=== PATIENT | female | born 1985 ===

== ENCOUNTER 2017-05-12 04:42 | Observation (INO) | payer MEDICARE, MEDICAID ==
[2017-05-12 05:07] VITALS: BMI 42.0
--- NOTE | 2017-05-12 05:31 | ED PDOC ---
HPI: Psych/Substance Abuse Time Seen by Provider: 05/12/17 05:07 Chief Complaint (Nursing): Psychiatric Evaluation History Per: Patient Additional Complaint(s): Pt. states since yesterday she's had suicidal ideations but no plan. States she is currently "31 weeks ." Further states that everything seems more "vivid and reaL" Also states that she is having visual hallucinations. Reports a hx of schizoaffective disorder. Of note, pt. states she was seen in [place] today and was told baby was ok but she states she is uncertain of this as she was unable to see the [place]. Denies HI, vaginal bleeding, abdominal pain, pelvic pain. Past Medical History Reviewed: Historical Data, Nursing Documentation, Vital Signs Vital Signs: Last Vital Signs Temp 97.8 F 05/12/17 05:06 Pulse 112 H 05/12/17 05:06 Resp 16 05/12/17 05:06 BP 155/102 H 05/12/17 05:06 Pulse Ox 100 05/12/17 05:06 - Medical History PMH: Anxiety, Asthma, Depression, Paranoia, Schizophrenia Denies: Alzheimer's Disease, Anemia, Arthritis, Cardia Arrhythmia, CHF, Crohn 's Disease, Dementia, Diabetes, Diverticulitis, Fractures, Gall Bladder Disease , Hepatitis, HIV, HTN, Hypercholesterolemia, Hyperthyroidism, Hypothyroidism, Kidney Stones, Migraine, Mitral Valve Prolapse, Osteoporosis, Pancreatitis, Parkinson's Disease, Peripheral Edema, Chronic Kidney Disease, Seizures, Sickle Cell Disease, Sexually Transmitted Disease, TIA - Surgical History Surgical History: Denies: Appendectomy, Cholecystectomy, Coronary Stent, Pacemaker - Family History Family History: States: No Known Family Hx - Immunization History Hx Tetanus Toxoid Vaccination: No Hx Influenza Vaccination: Yes Hx Pneumococcal Vaccination: No - Home Medications Home Medications: Ambulatory Orders Medication Instructions Recorded No Known Home Med 05/07/17 - Allergies Allergies/Adverse Reactions: Allergies Allergy/AdvReac Type Severity Reaction Status Date / Time FISH Allergy ITCHING Verified 05/12/17 05:06 Fish Containing Products Allergy ITCHING Verified 05/12/17 05:06 quetiapine [From Seroquel] Allergy SHORTNESS Verified 05/12/17 05:06 OF BREATH clindamycin AdvReac VOMITING Verified 05/12/17 05:06 Review of Systems ROS Statement: Except As Marked, All Systems Reviewed And Found Negative Psych: Positive for: Suicidal ideation Physical Exam - Reviewed Nursing Documentation Reviewed: Yes Vital Signs Reviewed: Yes - Physical Exam Appears: Positive for: Well, Non-toxic, No Acute Distress Head Exam: Positive for: ATRAUMATIC, NORMAL INSPECTION, NORMOCEPHALIC Skin: Positive for: Normal Color, Warm, DRY Eye Exam: Positive for: EOMI, Normal appearance, PERRL ENT: Positive for: Normal ENT Inspection Neck: Positive for: Normal, Painless ROM Cardiovascular/Chest: Positive for: Regular Rate, Rhythm Respiratory: Positive for: CNT, Normal Breath Sounds Gastrointestinal/Abdominal: Positive for: Normal Exam, Bowel Sounds, Soft. Negative for: Tenderness Back: Positive for: Normal Inspection Extremity: Positive for: Normal ROM Neurologic/Psych: Positive for: Alert, Oriented, Mood/Affect (calm, cooperative) - ECG O2 Sat by Pulse Oximetry: 100 - Progress ED Course And Treament: Pt. placed on 1:1. Crisis evaluation ordered. Disposition - Clinical Impression Clinical Impression: Schizoaffective disorder - Patient ED Disposition Is Patient to be Admitted: Transfer of Care (Signed out to Dr. Malave pending crisis evaluation.) - Disposition Disposition: Routine/Home Disposition Time: 06:15 Condition: STABLE Forms: [employer] ([place])
[2017-05-12 05:48] VITALS: BP 119/72
--- NOTE | 2017-05-12 06:18 | ED PDOC ---
- ECG O2 Sat by Pulse Oximetry: 100 Medical Decision Making Medical Decision Makin:00: Transfer of staff pending crisis evaluation. Scribe Attestation: Documented by Catherine Bansal acting as a scribe for Oliva Malave MD. [place] Attestation: All medical record entries made by the Scribe were at my direction and personally dictated by me. I have reviewed the chart and agree that the record accurately reflects my personal performance of the history, physical exam, medical decision making, and the department course for this patient. I have also personally directed, reviewed, and agree with the discharge instructions and disposition. Disposition - Clinical Impression Clinical Impression: Schizoaffective disorder - POA Present On Arrival: None - Disposition Disposition: Transfer of Care Disposition Time: 07:00 Condition: GOOD Patient Signed Over To: Ml Baker
--- NOTE | 2017-05-12 07:10 | ED PDOC ---
- ECG O2 Sat by Pulse Oximetry: 100 (RA) Pulse Ox Interpretation: Normal Medical Decision Making Medical Decision Makin:05 Patient signed out to me from Dr. Malave. Crisis evaluation pending. 1225 Patient is evaluated by crisis and cleared for discharge by Dr Paez. Scribe Attestation: Documented by Barbara Wood, acting as a scribe for Ml Baker MD. Provider Scribe Attestation: All medical record entries made by the Scribe were at my direction and personally dictated by me. I have reviewed the chart and agree that the record accurately reflects my personal performance of the history, physical exam, medical decision making, and the department course for this patient. I have also personally directed, reviewed, and agree with the discharge instructions and disposition. Disposition Doctor Will See Patient In The: Office Counseled Patient/Family Regarding: Studies Performed, Diagnosis, Need For Followup - Clinical Impression Clinical Impression: Schizoaffective disorder - POA Present On Arrival: None - Disposition Disposition: Discharged to Home Care Disposition Time: 12:25 Condition: GOOD ED OBSERVATION Date of observation admission: 05/12/17 Time of observation admission: 10:00 - Observation admission statement Patient is being placed in observation because:: Psych evaluation - Progress Note Progress Note: 05/12/17 10:00 Patient's condition is stable. 05/12/17 11:30 Patient is resting comfortably. Vitals are stable. At this time, crisis evaluation is pending.
[2017-05-12 09:41] VITALS: PULSE 96; RESP 18; TEMP 98.3
[2017-05-12 10:07] VITALS: O2SAT 100
== END 2017-05-12 13:15 | disposition home or self-care (01) ==
LOC: H.ER 04:42 → H.EROBSV 10:03
PROVIDERS: ADMIT Emergency Medicine; ATTEND Emergency Medicine
DX: O99.343 Other mental disorders complicating pregnancy, third trimester (principal); F25.9 Schizoaffective disorder, unspecified; Z3A.31 31 weeks gestation of pregnancy; J45.909 Unspecified asthma, uncomplicated; R45.851 Suicidal ideations; Z91.013 Allergy to seafood
CPT/HCPCS: 99284; G0378